=== PATIENT | female | born 1975 | race Caucasian/White ===

== ENCOUNTER 2018-09-15 09:46 | Emergency (ER) | payer BC ==
[~2018-09-15] VITALS: Ht 157.5 cm; Wt 80.7 kg
[2018-09-15 09:52] VITALS: BP 133/70; PULSE 86; RESP 18; Ht 157.5 cm; Wt 80.7 kg
[2018-09-15] MEDS ORDERED: CIPR500T4 PO (11:07)
[2018-09-15] MEDS ORDERED: CIPROFLOXACIN 500 MG TAB PO ONE (11:30)
--- NOTE | 2018-09-15 13:13 | ERD ---
ER Documentation Chief Complaint Chief Complaint painful urination today HPI 43-year-old female presenting with dysuria. Denies hematuria. Denies back pain. Denies fevers. The dysuria and frequency started today. Denies medical problems. NKDA. Surgical . Social history denies ROS All systems reviewed and are negative except as per history of present illness. Medications Home Meds Active Scripts Ciprofloxacin Hcl* (Ciprofloxacin Hcl*) 500 Mg Tablet, 500 MG PO BID for 7 Days, TAB Prov:TILA LEON PA-C 09/15/18 Allergies Allergies: Coded Allergies: No Known Allergy (Unverified , 09/15/18) PMhx/Soc Medical and Surgical Hx: pt denies Medical Hx, pt denies Surgical Hx Hx Alcohol Use: No Hx Substance Use: No Hx Tobacco Use: No Smoking Status: Never smoker FmHx Family History: No diabetes, No coronary disease, No other Physical Exam Vitals Vital Signs Date Temp Pulse Resp B/P (MAP) Pulse Ox O2 O2 Flow FiO2 Time Delivery Rate 09/15/18 98.1 86 18 133/70 100 09:52 (91) Physical Exam GENERAL: The patient is well-appearing, well-nourished, in no acute distress CHEST: Clear to auscultation bilaterally. There are no rales, wheezes or rhonchi. HEART: Regular rate and rhythm. No murmurs, clicks, rubs or gallops. ABDOMEN:Soft, nontender and nondistended. Good bowel sounds. No rebound or guarding. No gross peritonitis. No gross organomegaly or masses. BACK: No midline or flank tenderness. Results 24 hrs Laboratory Tests Test 09/15/18 10:28 09/15/18 10:30 Bedside Urine pH (LAB) 6.0 Bedside Urine Protein (LAB) Negative Bedside Urine Glucose (UA) Negative Bedside Urine Ketones (LAB) Negative Bedside Urine Blood 2+ Bedside Urine Nitrite (LAB) Negative Bedside Urine Leukocyte Esterase (L 2+ POC Beta HCG, Qualitative NEGATIVE Current Medications Medications Dose Sig/Arash Start Time Status Last (Trade) Ordered Route PRN Stop Time Admin Dose Reason Admin 500 mg ONCE ONCE 09/15/18 DC 09/15/18 Ciprofloxacin PO 11:30 09/15/18 11:20 (Cipro) 11:31 Procedures/MDM ER course: Cipro given ED. DM: 43-year-old female presenting with urinary tract infection. I have low suspicion for pyelonephritis. Patient's urine is positive and patient has findings consistent with urinary tract infection. Patient is discharged stricter precautions. All questions answered at discharge Departure Diagnosis: Primary Impression: UTI (urinary tract infection) Condition: Stable Patient Instructions: Understanding Urinary Tract Infections (UTIs) Referrals: COMM[facility]ITY CLIN[facility] YOU HAVE RECEIVED A MEDICAL SCREENING EXAM AND THE RESULTS INDICATE THAT YOU DO NOT HAVE A CONDITION THAT REQUIRES URGENT TREATMENT IN THE EMERGENCY DEPARTMENT. FURTHER EVALUATION AND TREATMENT OF YOUR CONDITION CAN WAIT UNTIL YOU ARE SEEN IN YOUR DOCTORS OFFICE WITHIN THE NEXT 1-2 DAYS. IT IS YOUR RESPONSIBILITY TO MAKE AN APPOINTMENT FOR FOLOW-UP CARE. IF YOU HAVE A PRIMARY DOCTOR --you should call your primary doctor and schedule an appointment IF YOU DO NOT HAVE A PRIMARY DOCTOR YOU CAN CALL OUR PHYSICIAN REFERRAL HOTLINE AT IF YOU CAN NOT AFFORD TO SEE A PHYSICIAN YOU CAN CHOSE FROM THE FOLLOWING [facility] [address] [facility] [facility] [address] [facility] [facility] [address] [facility] [facility] [address] [facility]. [facility] [address] [facility]. [facility]. [address] Additional Instructions: FOLLOW UP WITH YOUR PRIMARY CARE PHYSICIAN TOMORROW.Return to this facility if you are not improving as expected. TILA LEON PA-C Sep 15, 2018 13:13
== END 2018-09-15 11:39 | disposition home or self-care (01) ==
LOC: FTE 09:46
DX: N39.0 Urinary tract infection, site not specified (principal)
CPT/HCPCS: 81003; 81025; 99283

== ENCOUNTER 2019-01-08 08:01 | Inpatient (IN) | payer BC ==
[~2019-01-08] VITALS: Ht 157.5 cm; Wt 77.7 kg
[2019-01-08] VITALS (14 sets, daily range): BP systolic 90–129; BP diastolic 40–63; PULSE 90–102; RESP 15–26; Ht 157.5 cm; Wt 77.7 kg
[~2019-01-08 08:01] MED LIST: CIPR500T4 PO; METF-849 PO; METR-122 PO; OMEG100024 PO
[2019-01-08] MEDS ORDERED: ONDANSETRON 4 MG INJ IV STA (08:17)
[2019-01-08] MEDS ORDERED: SOD CHLORIDE 0.9% 1,000 ML IV STA (08:17)
[2019-01-08] MEDS ORDERED: BELLADONNA/PHENOBARBITAL TAB PO STA (08:17)
[2019-01-08] MEDS ORDERED: LIDOCAINE/MYLANTA 40 ML BTL PO STA (08:17)
[2019-01-08] MEDS ORDERED: KETOROLAC 15 MG INJ IV STA (08:17)
--- NOTE | 2019-01-08 08:41 | ERD ---
ER Documentation Chief Complaint Chief Complaint mid to lower abdominal pain, vomitted 2 x since this 0530 HPI 43-year-old woman complaining of generalized abdominal pain x2 days with some nausea. Patient denies vomiting or diarrhea, no fevers or chills, no chest pain or shortness of breath. Patient denies similar symptoms in the past. ROS All systems reviewed and are negative except as per history of present illness. Medications Home Meds Discontinued Scripts Ciprofloxacin Hcl* (Ciprofloxacin Hcl*) 500 Mg Tablet, 500 MG PO BID for 7 Days, TAB Prov:TILA LEON PA-C 09/15/18 Allergies Allergies: Coded Allergies: No Known Allergy (Unverified , 01/08/19) PMhx/Soc Hx Alcohol Use: No Hx Substance Use: No Hx Tobacco Use: No Smoking Status: Never smoker FmHx Family History: No diabetes Physical Exam Vitals Vital Signs Date Temp Pulse Resp B/P (MAP) Pulse Ox O2 O2 Flow FiO2 Time Delivery Rate 01/08/19 98.2 98 18 126/66 100 Room Air 10:16 (86) 01/08/19 97.6 128 20 140/63 95 08:02 (88) Physical Exam GENERAL: Well-developed, well-nourished, well-hydrated, mild discomfort, afebrile CARDIAC: Regular rate and rhythm, no murmurs rubs or gallops LUNGS: Clear bilaterally no wheezing crackles or stridor ABDOMEN: Right lower quadrant tenderness to touch with voluntary guarding, no rigidity or rebound SKIN: Warm and dry to touch, no abrasions, contusions, or hematomas, no lacerations, no ecchymosis, no target lesions, and without ulcers EXTREMITIES: No clubbing cyanosis or edema, calves are bilaterally symmetrical, no Homans sign, no popliteal cord sign. Distal pulses equal and bilateral PSYCH: Normal affect without agitation or irritability Result Diagram: 01/08/1982501/08/19825 Results 24 hrs Laboratory Tests Test 01/08/19 08:23 01/08/19 08:26 01/08/19 08:29 01/08/19 08:56 Urine NEGATIVE Test White Blood Count 22.7 10^3/ul Red Blood Count 4.43 10^6/ul Hemoglobin 12.5 g/dl Hematocrit 37.7 % Mean Corpuscular 85.1 fl Volume Mean Corpuscular 28.2 pg Hemoglobin Mean Corpuscular 33.2 g/dl Hemoglobin Concent Red Cell 13.7 % Distribution Width Platelet Count 343 10^3/UL Mean Platelet 9.3 fl Volume Immature 0.500 % Granulocytes % Neutrophils % 83.4 % Lymphocytes % 11.1 % Monocytes % 4.7 % Eosinophils % 0.0 % Basophils % 0.3 % Nucleated Red 0.0 /100WBC Blood Cells % Immature 0.110 10^3/ul Granulocytes # Neutrophils # 19.0 10^3/ul Lymphocytes # 2.5 10^3/ul Monocytes # 1.1 10^3/ul Eosinophils # 0.0 10^3/ul Basophils # 0.1 10^3/ul Nucleated Red 0.0 10^3/ul Blood Cells # Urine Color YELLOW Urine Clarity CLOUDY Urine pH 5.0 Urine Specific 1.027 Julian Urine Ketones NEGATIVE mg/dL Urine Nitrite NEGATIVE mg/dL Urine Bilirubin NEGATIVE mg/dL Urine Urobilinogen NEGATIVE mg/dL Urine Leukocyte NEGATIVE Kathleen/ul Esterase Urine Microscopic 12 /HPF RBC Urine Microscopic 3 /HPF WBC Urine Squamous MODERATE /HPF Epithelial Cells Urine Mucus FEW /HPF Urine Hemoglobin 3+ mg/dL Urine Glucose NEGATIVE mg/dL Urine Total 1+ mg/dl Protein Sodium Level 136 mmol/L Potassium Level 3.7 mmol/L Chloride Level 100 mmol/L Carbon Dioxide 24 mmol/L Level Anion Gap 12 Blood Urea 9 mg/dl Nitrogen Creatinine 0.51 mg/dl Est Glomerular > 60 mL/min Filtrat Rate mL/min Glucose Level 178 mg/dl Calcium Level 9.0 mg/dl Total Bilirubin 0.7 mg/dl Direct Bilirubin 0.00 mg/dl Indirect Bilirubin 0.7 mg/dl Aspartate Amino 28 IU/L Transf (AST/SGOT) Alanine 28 IU/L Aminotransferase ( ALT/SGPT) Alkaline 83 IU/L Phosphatase Total Protein 7.7 g/dl Albumin 4.1 g/dl Globulin 3.60 g/dl Albumin/Globulin 1.13 Ratio Lipase 202 U/L Prothrombin Time 12.3 Sec Prothrombin Time 1.0 Ratio INR International 0.90 Normalized Ratio Activated 27.[address] Time POC Beta HCG, NEGATIVE Qualitative Current Medications Medications Dose Sig/Arash Start Time Status Last (Trade) Ordered Route PRN Stop Time Admin Dose Reason Admin Sodium 1,000 ml @ Q1H STAT 01/08/19 DC 01/08/19 Chloride 1,000 mls/hr IV 08:17 08:39 01/08/19 09:16 Ondansetron 4 mg ONCE STAT 01/08/19 DC 01/08/19 HCl (Zofran IV 08:17 08:38 Inj) 01/08/19 08:21 40 ml ONCE STAT 01/08/19 DC 01/08/19 Miscellaneous PO 08:17 08:38 Medication 01/08/19 08:21 (Gi Cocktail (2)) Belladonna/ 2 tab ONCE STAT 01/08/19 DC 01/08/19 Phenobarbital PO 08:17 08:38 () 01/08/19 08:21 Ketorolac 15 mg ONCE STAT 01/08/19 DC 01/08/19 Tromethamine IV 08:17 08:38 (Toradol) 01/08/19 08:21 Piperacillin 100 ml @ ONCE ONCE 01/08/19 DC 01/08/19 Sod/ 200 mls/hr IVPB 10:30 10:39 Tazobactam 01/08/19 10:59 Sod Procedures/MDM IV line was established patient was placed on monitoring tech rhythm strip revealed a sinus rhythm at about 80 bpm with upright P and T waves. Patient was afebrile I administered 1 L normal saline IV, Toradol 15 mg IV, Zofran 4 mg IV, GI cocktail p.o. CT scan of the abdomen pelvis was performed revealing acute appendicitis with a fecalith. Please refer to radiologist dictation for full report. CBC revealed leukocytosis at 23, electrolytes and liver function tests are unremarkable, test and urinalysis were negative. I spoke to surgeon on-call who agreed to consult the patient most likely for appendectomy. Patient admitted to [facility]. I administered Zosyn 3.375 g IV Departure Diagnosis: Primary Impression: Appendicitis Appendicitis type: acute appendicitis Acute appendicitis type: with localized peritonitis Appendicitis gangrene presence: without gangrene Appendicitis perforation presence: without perforation Appendicitis abscess presence: without abscess Qualified Codes: K35.30 - Acute appendicitis with localized peritonitis, without perforation or gangrene Ruled Out: Abdominal pain Condition: KINZA Quinteros MD Jan 08, 2019 08:41
[2019-01-08] MEDS ORDERED: PIPER-TAZO 3.375 GM IV (PMX) 100 ML IVPB ONE (10:30)
[2019-01-08] MEDS ORDERED: morphine 2 MG INJ IV PRN ×2 (13:00→13:30)
--- NOTE | 2019-01-08 13:14 | PREAC ---
Date/Time of Note Date/Time of Note DATE: 01/08/19 TIME: 13:13 Anesthesia Eval and Record Evaluation Time Pre-Procedure Interview DATE: 01/08/19 TIME: 13:13 Age 43 Sex female NPO: 8 hrs Preoperative diagnosis appendicitis Planned procedure laparoscopic appendectomy Past Medical History Past Medical History: Includes Endo: Diabetes GI: Obesity Surgery & Anesthesia Issues No known issue Meds Anticoagulation: No Beta Haroon within 24 hr: No Reason Beta Haroon not given: Pt. not on B-Haroon Discontinued Scripts Ciprofloxacin Hcl* (Ciprofloxacin Hcl*) 500 Mg Tablet, 500 MG PO BID for 7 Days, TAB Prov:TILA LEON PA-C 09/15/18 Current Medications Morphine Sulfate (morphine) 2 mg Q4H PRN IV SEVERE PAIN LEVEL 7-10 Last administered on 01/08/19at 13:07; Admin Dose 2 MG; Start 01/08/19 at 13:30 Sodium Chloride 1,000 ml @ 125 mls/hr Q8H IV ; Start 01/08/19 at 13:03; Status UNV IV Flush (NS 3 ml) 3 ml PER PROTOCOL IV ; Start 01/08/19 at 13:30; Status UNV Ondansetron HCl (Zofran Inj) 4 mg Q6H PRN IV NAUSEA/VOMITING; Start 01/08/19 at 13:30; Status UNV Acetaminophen (Tylenol Tab) 650 mg Q6H PRN PO .PAIN 1-3 OR TEMP; Start 01/08/19 at 13:30; Status UNV Docusate Sodium (Colace) 100 mg Q12H PO ; Start 01/08/19 at 13:30; Status UNV Zolpidem Tartrate (Ambien) 5 mg QHS PRN PO .INSOMNIA; Start 01/08/19 at 13:30; Status UNV Famotidine (Pepcid) 20 mg Q12 PO ; Start 01/08/19 at 21:00; Status UNV Meds reviewed: Yes Allergies Coded Allergies: No Known Allergy (Unverified , 01/08/19) Allergies Reviewed: Yes Labs/Studies Labs Reviewed: Reviewed by anesthesiologist Result Diagram: 01/08/19 0826 01/08/19 0826 Laboratory Tests 01/08/19 08:26 test: Negative Pre-procedure Exam Last vitals Vital Signs Date Temp Pulse Resp B/P (MAP) Pulse Ox O2 O2 Flow FiO2 Time Delivery Rate 01/08/19 98.8 96 18 129/63 99 Room Air 12:05 (85) Airway: Adequate mouth opening Mallampati: Mallampati II Teeth: Normal Lung: Normal Heart: Normal ASA Physical Status ASA physical status: 2 Emergency: None Planned Anesthetic General/MAC: ETT Pre-operative Attestations Prior to commencing anesthesia and surgery, the patient was re-evaluated, there was verification of: *The patient's identity *The results of appropriate recent lab work and preoperative vital signs *The above evaluation not changing prior to induction *Anesthetic plan, risk benefits, alternative and complications discussed with patient/family; questions answered; patient/family understands, accepts and wishes to proceed. RAMIRO COTTO Jan 08, 2019 13:14
--- NOTE | 2019-01-08 13:26 | HP ---
DATE OF ADMISSION: 01/08/2019 PRESENTING COMPLAINT: Abdominal pain, nausea and vomiting. 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 She has had no fever, but has had some subjective chills. Pain is located in t he right lower quadrant, radiates to the umbilicus and posteriorly. Has not had similar pain in the past. Denies dysuria. Denies hematochezia. Also denies hematemesis. Denies passing out episodes. Denies chest pain. Imaging in the Emergency Room with an abdomen and pelvis CT scan showed a dilate d appendix with appendicolith and periappendiceal fat concerning for acute appendicitis as well as hernandez rrounding lymph nodes. The patient was also found to have a 6.5 cm left adnexal cystic structure. S he was also found to have hepatomegaly with steatosis. She is being admitted for management of acute appendicitis. PAST MEDICAL HISTORY: Patient denies. PAST SURGICAL HISTORY: section x2 in the past. ALLERGIES: NO KNOWN DRUG ALLERGIES. SOCIAL HISTORY: Denies tobacco, alcohol or illicit drug use. FAMILY HISTORY: Positive for diabetes. REVIEW OF SYSTEMS: A 12-point review of system as per HPI. HOME MEDICATIONS: None to report. PHYSICAL EXAMINATION: VITAL SIGNS: Temperature 98.8, pulse 96. When she came in pulse was as high as 128, respiratory rat e 18, blood pressure 129/63, saturations 100% on room air. GENERAL: Acutely ill looking, but currently comfortable, in no distress. HEENT: Head is normocephalic. Pupils equal and reactive. NECK: Supple. CHEST: Clear. CARDIOVASCULAR: S1 and S2 only. ABDOMEN: Soft. Right lower quadrant of the abdomen is tender to deep palpation with minimal guardin g but no rebound. Normoactive bowel sounds. Nondistended, non-tympanitic. EXTREMITIES: Lower extremities negative for edema. NEUROLOGIC: No gross focal deficits. LABORATORY VALUES: Urine is cloudy with a total red blood cells, 3+ hemoglobin and protein. Hematolo gy: White count is 22,000 with neutrophil predominance and a coag profile unremarkable and her chemi stry basically a complete metabolic profile was also unremarkable. ASSESSMENT: A 43-year-old female who presented to the Emergency Room with concerns for abdominal fran n, nausea, vomiting for 1 day's duration managed as follows: 1. Acute appendicitis. 2. A 6.5 cm incidental finding of a left adnexal cystic structure. 3. Fatty liver and obesity. DISPOSITION: General surgical consultation has been obtained to assist with appendectomy. We will p rovide supportive care, pain control and empiric antibiotics, awaiting their review. For her adnexal mass, we will go ahead and order a pelvic ultrasound and see what that shows and continue all other screening modalities and further interventions will depend on our findings and her clinical course. Plan of care has been discussed with patient in detail, questions have been answered. Of note is breanne t the patient also has mild sepsis from appendicitis. Dictated By: LUIS A PABON MD, BA/ANNA Conf#: [id number] DID#: [id number]
[2019-01-08] MEDS ORDERED: ACETAMINOPHEN 325 MG TAB PO PRN ×2 (13:30→18:30)
[2019-01-08] MEDS ORDERED: ONDANSETRON 4 MG INJ IV PRN ×2 (13:30→16:00)
[2019-01-08] MEDS: DOCUSATE SODIUM 100 MG CAP PO SCH (13:30)
[2019-01-08] MEDS ORDERED: ZOLPIDEM 5 MG TAB PO PRN (13:30)
[2019-01-08] MEDS ORDERED: NACL 0.9% 3 ML SYG IV SCH (13:30)
--- NOTE | 2019-01-08 13:38 | CONS ---
Assessment/Plan Assessment/Plan Hospital Course (Demo Recall) 1. Acute appendicitis with appendicolith: -Antibiotics -OR today -N.p.o. -IV fluids 2. Leukocytosis: -As above -Trend 3. Abdominal pain: -As above -Pain management 4.Large cystic structure in left adnexa: -We will attempt to visualize during appendectomy otherwise can consider pelvic ultrasound for further characterization 5. Hepatomegaly with hepatic steatosis: -encourage weight loss 6. Diabetes: -Highly encouraged weight loss -Glucose management 7. Obesity BMI: 31 -diet and exercise optimization -encourage weight loss Thank you. Patient seen and examined in collaboration with Dr. Luiz Cortes. Consultation Date/Type/Reason Admit Date/Time Jan 08, 2019 at 10:39 Date of Consultation: Jan 08, 2019 Type of Consult Surgical Reason for Consultation Abdominal pain, appendicitis Requesting Provider: KINZA WASHINGTON MD Date/Time of Note DATE: 01/08/19 TIME: 13:29 Hx of Present Illness Laura Baca is a 43-year-old woman with past medical history of obesity and diabetes who presents to the ER with complaints of abdominal pain abdominal pain began 5:30 in the evening the night prior to presentation. Abdominal pain is described as strong and constant beginning in the mid epigastric region with radiation bilaterally however has currently migrated towards the right lower quadrant. Associated symptoms include nausea with vomiting, nonbloody emesis. She denies fevers, chills, congested cough, chest pain, palpitations, change in bowel or bladder habits, skin or scleral changes.CT of the abdomen was performed showing dilated appendix with proximal appendicolith and trace periappendiceal fat stranding concerning for acute appendicitis laboratory findings significant for elevated WBC of 22.7. General surgery was asked to evaluate. 12 point review of systems was reviewed is negative except for as stated in HPI. Past Medical History Diabetes Obesity Home Meds Discontinued Scripts Ciprofloxacin Hcl* (Ciprofloxacin Hcl*) 500 Mg Tablet, 500 MG PO BID for 7 Days, TAB Prov:TILA LEON PA-C 09/15/18 Medications Current Medications Morphine Sulfate (morphine) 2 mg Q4H PRN IV SEVERE PAIN LEVEL 7-10 Last admi nistered on 01/08/19at 13:07; Admin Dose 2 MG; Start 01/08/19 at 13:30 Sodium Chloride 1,000 ml @ 125 mls/hr Q8H IV ; Start 01/08/19 at 13:03 IV Flush (NS 3 ml) 3 ml PER PROTOCOL IV ; Start 01/08/19 at 13:30 Ondansetron HCl (Zofran Inj) 4 mg Q6H PRN IV NAUSEA/VOMITING; Start 01/08/19 at 13:30 Acetaminophen (Tylenol Tab) 650 mg Q6H PRN PO .PAIN 1-3 OR TEMP; Start 01/08/19 at 13:30 Docusate Sodium (Colace) 100 mg Q12H PO ; Start 01/08/19 at 13:30 Zolpidem Tartrate (Ambien) 5 mg QHS PRN PO .INSOMNIA; Start 01/08/19 at 13:30 Famotidine (Pepcid) 20 mg Q12 PO ; Start 01/08/19 at 21:00 Allergies: Coded Allergies: No Known Allergy (Unverified , 01/08/19) Past Surgical History C-sections x2 IUD Family History Significant Family History: no pertinent family hx Social History Alcohol Use: none Smoking Status: Never smoker Drug Use: none Exam/Review of Systems Exam Vitals Vital Signs Date Temp Pulse Resp B/P (MAP) Pulse Ox O2 O2 Flow FiO2 Time Delivery Rate 01/08/19 98.8 96 18 129/63 99 Room Air 12:05 (85) Constitutional: alert, oriented, well developed Psych: nl mood/affect; No anxiety Head: normocephalic, atraumatic Eyes: nl conjunctiva, nl lids, nl sclera ENMT: nl external ears & nose, nl lips & teeth, mucosa pink and moist Neck: supple, non-tender; No jvd Respiratory: normal air movement; No congested cough Cardiovascular: regular rate and rhythm, nl pulses Gastrointestinal: soft, distended (Moderate), tender (Right lower quadrant, McBurney's point) Genitourinary - Female: nl external genitalia Musculoskeletal: nl extremities to inspection, nl gait and stance Extremities: normal pulses Neurological: nl mental status, nl speech, nl strength Skin: No rash or lesions Results Result Diagram: 01/08/19 0826 01/08/19 0826 Results 24hrs Laboratory Tests Test 01/08/19 08:26 01/08/19 08:29 01/08/19 08:56 White Blood Count 22.7 H Red Blood Count 4.43 Hemoglobin 12.5 Hematocrit 37.7 Mean Corpuscular Volume 85.1 Mean Corpuscular Hemoglobin 28.2 L Mean Corpuscular Hemoglobin Concent 33.2 Red Cell Distribution Width 13.7 Platelet Count 343 Mean Platelet Volume 9.3 Immature Granulocytes % 0.500 H Neutrophils % 83.4 H Lymphocytes % 11.1 L Monocytes % 4.7 Eosinophils % 0.0 Basophils % 0.3 Nucleated Red Blood Cells % 0.0 Immature Granulocytes # 0.110 H Neutrophils # 19.0 H Lymphocytes # 2.5 Monocytes # 1.1 H Eosinophils # 0.0 Basophils # 0.1 Nucleated Red Blood Cells # 0.0 Urine Color YELLOW Urine Clarity CLOUDY A Urine pH 5.0 Urine Specific [place] 1.027 Urine Ketones NEGATIVE Urine Nitrite NEGATIVE Urine Bilirubin NEGATIVE Urine Urobilinogen NEGATIVE Urine Leukocyte Esterase NEGATIVE Urine Microscopic RBC 12 H Urine Microscopic WBC 3 Urine Squamous Epithelial Cells MODERATE Urine Mucus FEW A Urine Hemoglobin 3+ H Urine Glucose NEGATIVE Urine Total Protein 1+ H Sodium Level 136 Potassium Level 3.7 Chloride Level 100 Carbon Dioxide Level 24 Anion Gap 12 Blood Urea Nitrogen 9 Creatinine 0.51 Est Glomerular Filtrat Rate mL/min > 60 Glucose Level 178 Calcium Level 9.0 Total Bilirubin 0.7 Direct Bilirubin 0.00 Indirect Bilirubin 0.7 Aspartate Amino Transf (AST/SGOT) 28 Alanine Aminotransferase (ALT/SGPT) 28 Alkaline Phosphatase 83 Total Protein 7.7 Albumin 4.1 Globulin 3.60 H Albumin/Globulin Ratio 1.13 Lipase 202 Prothrombin Time 12.3 Prothrombin Time Ratio 1.0 INR International Normalized Ratio 0.90 Activated Partial Thromboplast Time 27.5 POC Beta HCG, Qualitative NEGATIVE Medications Medication Current Medications Morphine Sulfate (morphine) 2 mg Q4H PRN IV SEVERE PAIN LEVEL 7-10 Last adm inistered on 01/08/19at 13:07; Admin Dose 2 MG; Start 01/08/19 at 13:30 Sodium Chloride 1,000 ml @ 125 mls/hr Q8H IV ; Start 01/08/19 at 13:03 IV Flush (NS 3 ml) 3 ml PER PROTOCOL IV ; Start 01/08/19 at 13:30 Ondansetron HCl (Zofran Inj) 4 mg Q6H PRN IV NAUSEA/VOMITING; Start 01/08/19 at 13:30 Acetaminophen (Tylenol Tab) 650 mg Q6H PRN PO .PAIN 1-3 OR TEMP; Start 01/08/19 at 13:30 Docusate Sodium (Colace) 100 mg Q12H PO ; Start 01/08/19 at 13:30 Zolpidem Tartrate (Ambien) 5 mg QHS PRN PO .INSOMNIA; Start 01/08/19 at 13:30 Famotidine (Pepcid) 20 mg Q12 PO ; Start 01/08/19 at 21:00 HAKAN VEGA NP Jan 08, 2019 13:38
[2019-01-08] MEDS: SOD CHLORIDE 0.9% 1,000 ML IV SCH (13:48)
[2019-01-08] MEDS ORDERED: ONDANSETRON 4 MG INJ ONE (15:43)
[2019-01-08] MEDS ORDERED: ROCURONIUM 50 MG INJ ONE (15:43)
[2019-01-08] MEDS ORDERED: PROPOFOL 20 ML ONE ×2 (15:43→17:37)
[2019-01-08] MEDS ORDERED: ROPIVACAINE 0.5 % 30 ML VIAL ONE (15:43)
[2019-01-08] MEDS ORDERED: KETOROLAC 30 MG INJ ONE (15:44)
[2019-01-08] MEDS ORDERED: METOCLOPRAMIDE 10 MG INJ ONE (15:44)
[2019-01-08] MEDS ORDERED: BUPIVACAINE 0.25%/EPI (SDV) 30 ML INJ ONE (15:48)
[2019-01-08] MEDS ORDERED: LIDOCAINE 1% (MPF) 30 ML INJ ONE (15:48)
[2019-01-08] MEDS ORDERED: FENTAnyl 50 MCG/ML VIAL IV PRN ×3 (16:00)
[2019-01-08] MEDS ORDERED: MEPERIDINE 25 MG INJ IV PRN (16:00)
[2019-01-08] MEDS ORDERED: DIPHENHYDRAMINE 50 MG INJ IV PRN (16:00)
[2019-01-08] MEDS ORDERED: HYDROmorphONE 1 MG/5 ML IV SYRINGE IV PRN ×3 (16:00)
[2019-01-08] MEDS ORDERED: KETOROLAC 30 MG INJ IV PRN (16:00)
[2019-01-08] MEDS ORDERED: MIDAZOLAM 1 MG/ML 2 ML INJ ONE (16:20)
[2019-01-08] MEDS ORDERED: LIDOCAINE 2% JELLY 5 ML ONE (16:29)
[2019-01-08] MEDS ORDERED: NEOSTIGMINE 3 MG/3 ML SYRINGE ONE (17:38)
[2019-01-08] MEDS ORDERED: GLYCOPYRROLATE 0.4 MG INJ ONE (17:38)
--- NOTE | 2019-01-08 18:02 | OPR ---
Date/Time of Note Date/Time of Note DATE: 01/08/19 TIME: 17:56 Operative Report Free Text/Dictation Preoperative Diagnosis 1. Acute appendicitis, possible perforation 2. BMI 31 3. Left ovarian 6 cm cyst Postoperative Diagnosis 1. Acute appendicitis with perforation, peritonitis with pus 2. BMI 31 3. Left ovarian 6 to 8 cm large cyst with eminent risk for torsion. Operation Performed 1. Laparoscopic appendectomy and washout 2. [place], [id number] 3. Laparoscopic guided bilateral transversus abdominis plane block 4. Assist and laparoscopic left ovarian cystectomy (primary surgeon Dr. Browne) Surgeon: NATHANAEL MCCORMICK MD Electrocardiograph Technician: Kim Browne MD Anesthesia: general (Plus local plus regional) Anesthesiologist: Becky Norris MD Estimated Blood Loss: 50 ml's Specimens: Appendix Cyst fluid Cyst wall Tubes/Drains 19 F Gonzalez Complications: None Pt Condition Post Procedure: stable Disposition: PACU Indications: Per consult note. Risks include but are not limited to bleeding, infection, abscess, seroma, leak, damage to intestines or any intra-abdominal/intrapelvic structures, hernia formation, chronic pain, need for re-operations or further surgeries, [place], stroke, PE, DVT, pneumonia, organ failures, or even . Procedure Note: Patient was brought into the operating room, placed supine on the operating table, SCDs were placed, left arm was tucked, all pressure points were well- padded, preoperative antibiotics administered, and after induction of anesthesia, patient was prepped and draped in usual sterile fashion, and timeout was performed. Incision was made supraumbilically and the Veress needle was safely place into the abdomen. After negative sip test, abdomen was insufflated to 15 mmHg with CO2. At this point Veress was removed and the 5 mm blunt trocar was placed into the abdomen. Laparoscopy was performed and no injuries were identified using a 5 mm 30 scope. Under direct visualization another 5 mm port was placed and left lower quadrant and 12 mm port and suprapubic region avoiding the bladder. All incision sites were injected with quarter percent Marcaine with 1% lidocaine with epi. Bilateral transversus abdominis plane block was performed under laparoscopic visualization to aid with pain control intra-and postoperatively. Patient was placed in Trendelenburg and right side up. The appendix was found to be inflamed with evidence of perforation with pus in the pelvis and right abdomen. The base was transected using Endo ALBER white load automatic 35 mm stapler just on the cecum. The laura were fired fully. The mesoappendix was transected with another white load stapler. Hemostasis was fully obtained. The appendix was placed in an Endo Catch bag and removed through the suprapubic port site. That fascia was eventually closed with Endo Close and 0 Vicryl in a [id number] manner avoiding the bladder. Pelvis was investigated. Left ovarian cyst was at least 6 to 8 cm with eminent risk for torsion. Intraoperative consultation was obtained from [employer] (Dr. Browne). Upon examination the cyst ruptured. Cyst aspirate was sent to pathology. Cyst wall was sent to pathology. Left ovarian cystectomy was performed and hemostasis was obtained with electrocautery and fibrillar. Interceed was wrapped around the ovary. There was complete hemostasis. Due to the perforation 19 Iranian Gonzalez drain was placed into the abdomen and pelvis and right gutter through the left lower quadrant incision and secured with 2-0 nylon suture. Ports and CO2 were removed under direct visualization, wounds were fully irrigated, and skin was closed in subcuticular fashion using 4-0 Monocryl. Dermabond was applied. All counts were correct and the end of the operation 2. Patient was extubated and transferred to recovery room in stable condition. NATHANAEL MCCORMICK MD Jan 08, 2019 18:02
[2019-01-08] MEDS ORDERED: FENTAnyl 50 MCG/ML VIAL ONE (18:22)
[2019-01-08] MEDS: HYDROmorphONE 0.5 MG/0.5 ML SYG IV PRN (21:30)
[2019-01-08] MEDS: FAMOTIDINE 20 MG TAB PO SCH (21:30)
[2019-01-09] MEDS: SOD CHLORIDE 0.9% 1,000 ML IV SCH ×4 (00:34→21:09)
[2019-01-09] MEDS: PIPER-TAZO 3.375 GM IV (PMX) 100 ML IVPB SCH ×5 (00:34→23:15)
[2019-01-09] MEDS: DOCUSATE SODIUM 100 MG CAP PO SCH ×2 (00:34→13:52)
[2019-01-09 02:00] VITALS: BP 104/52; PULSE 80; RESP 19
--- NOTE | 2019-01-09 02:52 | OPR ---
Date/Time of Note Date/Time of Note DATE: 01/09/19 TIME: 02:41 Operative Report Free Text/Dictation January 08, 2019 Procedure Date: Jan 08, 2019 Preoperative Diagnosis 1. Ruptured appendix 2. Intraoperative finding of left ovarian cyst, Intra-Op consultation by general surgeon ( Dr Cortes) to [facility] Postoperative Diagnosis Ruptured appendix, appendicitis Enlarged left simple ovarian cyst. Adhesion and scar of the uterus the anterior abdominal wall related to prior C- section Moderate inflammation of the tubes related to recent ruptured appendix/inflammation Ovary in the right side appears normal. No evidence of peritubal adhesion or scar Please see the rest of the operative report from general surgeon Dr. Cortes for the rest of Intra-Op findings Operation/Procedure Performed 1. Laparoscopic appendectomy performed by general surgeon Dr. Cortes 2. Consulted [facility] due to incidental finding of the left enlarged simple benign- appearing ovarian cyst, that had instantly burst during procedure. Ovarian cystectomy performed laparoscopically Surgeon see signature line Bobcat Driver/Labor Dr Luiz Cortes MD Anesthesia Type: general Anesthesiologist: PEREZ ARMSTRONG MD Estimated Blood Loss: 50 - 100 ml's Transfusion none Specimen Appendix, refer to general surgery note for this specimen as well as Intra-Op finding The left ovarian cyst wall Grafts/Implants none Tubes/Drains Drain placed into the pelvis Complications none Pt Condition Post Procedure: stable Disposition: PACU Indications Incidental finding of enlarged left ovarian cyst noted during laparoscopic appendectomy that had burst significantly during laparoscopic surgery. Consulted [facility] intraoperatively Procedure Description Left enlarged ovarian cyst incidentally found during laparoscopic appendectomy Intraoperative consultation was done by general surgery Dr. Cortes. Attended to the surgical field. Evaluation of the [facility] organs noted normal uterus size with no evidence of fibroid but there was evidence of adhesions and scar of uterus to anterior abdominal wall related to prior . There was evidence of ruptured left ovarian cyst which appeared to be simple follicular cyst. Ovaries and both sides were benign looking. Ovary in the right side looks normal with small 1 cm follicular cyst that appeared completely benign. There was evidence of inflammation of the tubes related to recent ruptured appendix. Scrubbed to the case. Cyst wall was resected from the base of the ovary and cyst wall was in pieces sent to pathology. Then the remainder of the ovarian cyst wall was trimmed. Using bipolar and monopolar cautery hemostasis of the bed of the ovarian cyst obtained. Then fibrillar was placed over the resected site was packed into the resected ovarian cyst area and then Interceed was placed around the ovary after assurance about excellent hemostasis. Negative pressure check confirmed adequate hemostasis. Drain was placed by surgeon into the pelvis. No complication noted during the procedure or concern. Please refer to the rest of the dictation to Dr. Cortes's note. SHAHAB BOWMAN MD Jan 09, 2019 02:51
[2019-01-09] MEDS: HYDROmorphONE 0.5 MG/0.5 ML SYG IV PRN ×3 (03:04→11:18)
[2019-01-09 08:19] VITALS: BP 102/54; PULSE 86; RESP 16
[2019-01-09] MEDS: FAMOTIDINE 20 MG TAB PO SCH ×2 (08:25→21:10)
--- NOTE | 2019-01-09 08:30 | PAC ---
Date/Time of Note Date/Time of Note DATE: 01/09/19 TIME: 08:30 Post-Anesthesia Notes Post-Anesthesia Note Last documented vital signs Vital Signs Date Temp Pulse Resp B/P (MAP) Pulse Ox O2 O2 Flow FiO2 Time Delivery Rate 01/09/19 98.1 86 16 102/54 94 08:19 (70) 01/08/19 Nasal 2.0 19:08 Cannula Activity: WNL Respiratory function: WNL Cardiovascular function: WNL Mental status: Baseline Pain reasonably controlled: Yes Hydration appropriate: Yes Nausea/Vomiting absent: No PEREZ ARMSTRONG MD Jan 09, 2019 08:30
[2019-01-09] MEDS: HYDROCODONE/APAP (5/325) TAB PO PRN ×2 (11:18→19:53)
[2019-01-09] MEDS ORDERED: GLUCAGON 1 MG INJ IM PRN (13:30)
[2019-01-09] MEDS ORDERED: GLUCOSE GEL 15 GRAM TUBE PO PRN ×2 (13:30)
[2019-01-09] MEDS ORDERED: DEXTROSE 50% 50 ML SYRINGE IV PRN ×2 (13:30)
[2019-01-09] MEDS ORDERED: GLUCOSE GEL 15 GRAM TUBE BUCCAL PRN (13:30)
[2019-01-09 14:00] VITALS: BP 97/51; PULSE 75; RESP 20
[2019-01-09 15:15] VITALS: BP 117/57; PULSE 93; RESP 22
--- NOTE | 2019-01-09 16:53 | PN ---
Date/Time of Note Date/Time of Note DATE: 01/09/19 TIME: 16:40 Assessment/Plan Lines/Catheters IV C[facility]ter Type (from [facility]): Peripheral IV Salgado in Place (from Nrs): No Assessment/Plan Chief Complaint/Hosp Course 1. Acute appendicitis with perforation, peritonitis and pus; left ovarian 60 cm large cyst with eminent risk for torsion; status post laparoscopic appendectomy and washout, laparoscopic left ovarian cystectomy (primary surgeon Dr. Browne) 01/08/19 -continue Antibiotics -IS -ambulate -ice pack to abdominal wall -advance diet as tolerated 2. Leukocytosis: improved -As above -Trend 3. Abdominal pain: -As above -Pain management 4.Large cystic structure in left adnexa: sp laparoscopic left ovarian cystectomy (primary surgeon Dr. Browne) 01/08/19 -as above 5. Hepatomegaly with hepatic steatosis: -encourage weight loss 6. Diabetes: -Highly encouraged weight loss -Glucose management 7. Obesity BMI: 31 -diet and exercise optimization -encourage weight loss Thank you. Patient seen and examined in collaboration with Dr. Luiz Cortes. Subjective 24 Hr Interval Summary Complaints of abdominal pain. No fevers, chills, sob, congested cough, cp, palpitations, [place], dizziness, n/v/d/dysuria. Exam/Review of Systems Vital Signs Vitals Vital Signs Date Temp Pulse Resp B/P (MAP) Pulse Ox O2 O2 Flow FiO2 Time Delivery Rate 01/09/19 98.1 93 22 117/57 85 15:15 (77) 01/08/19 Nasal 2.0 19:08 Cannula Intake and Output 01/08/19 01/08/19 01/09/19 1515:00 23:00 07:00 IntakeIntake Total 50 ml 1440 ml 1715 ml OutputOutput Total 500 ml 10 ml 475 ml BalanceBalance -450 ml 1430 ml 1240 ml Exam Free Text/Dictation Constitutional: alert, oriented, well developed Psych: nl mood/affect; No anxiety Head: normocephalic, atraumatic Eyes: nl conjunctiva, nl lids, nl sclera ENMT: nl external ears & nose, nl lips & teeth, mucosa pink and moist Neck: supple, non-tender; No jvd Respiratory: normal air movement; No congested cough Cardiovascular: regular rate and rhythm, nl pulses Gastrointestinal: soft, distended (Moderate), tender (branden-incisional, incision sites dry without drainage/discoloration/bruising; RENETTA with serosanguineous drainage) Genitourinary - Female: nl external genitalia Musculoskeletal: nl extremities to inspection, nl gait and stance Extremities: normal pulses Neurological: nl mental status, nl speech, nl strength Skin: No rash or lesions Results Result Diagram: 01/09/19 0425 01/09/19 0425 HAKAN VEGA NP Jan 09, 2019 16:53
[2019-01-09] MEDS: INSULIN ASPART [NOVOLOG] 3 ML PEN SC SCH ×2 (17:22→21:00)
--- NOTE | 2019-01-09 18:02 | PN ---
Date/Time of Note Date/Time of Note DATE: 01/09/19 TIME: 17:52 Assessment/Plan VTE Prophylaxis Risk score (from Nsg)>0 risk: 2 SCD applied (from Nsg): Yes Pharmacological prophylaxis: NA/contraindicated Pharm contraindication: low risk/ambulating, other (scd) Lines/Catheters IV Catheter Type (from Nrs): Peripheral IV Urinary Cath still in place: No Assessment/Plan Hospital Course A 43-year-old female who presented to the Emergency Room with concerns for abdo brett pain, nausea, vomiting for 1 day's duration managed as follows: 1. Acute perforated appendicitis. -patient underwent lap appendectomy yesterday with findings of Acute appendicitis with perforation, peritonitis with pus and also had laparoscopic cystectomy of ovariancyst noted ion #2 in the same procedure -continue abx -drain still with good output and patient still wuth a good deal of pain -continue clears for now and supportive care 2. A 6.5 cm incidental finding of a left adnexal cystic structure.- complex ovarian cyst on US 3. Fatty liver and obesity. 4. DM 2: recent diagnosis - was not on meds outpatient -A1c 7.2 -advised on weight loss -diabetic education for need for glucometer and new diagnosis -SSI only for now, recommend 1800 calorie diet when commenced on a diet. 5. Low HDL : -high fiber diet, fish oil? Result Diagram: 01/09/19 0425 01/09/19 0425 Results 24hrs Laboratory Tests Test 01/09/19 04:25 01/09/19 17:21 White Blood Count 16.8 #H Red Blood Count 3.45 #L Hemoglobin 9.9 #L Hematocrit 30.4 L Mean Corpuscular Volume 88.1 Mean Corpuscular Hemoglobin 28.7 L Mean Corpuscular Hemoglobin Concent 32.6 Red Cell Distribution Width 14.6 H Platelet Count 266 # Mean Platelet Volume 9.6 Immature Granulocytes % 0.400 Neutrophils % 78.0 H Lymphocytes % 14.6 L Monocytes % 6.7 Eosinophils % 0.1 Basophils % 0.2 Nucleated Red Blood Cells % 0.0 Immature Granulocytes # 0.070 H Neutrophils # 13.1 H Lymphocytes # 2.5 Monocytes # 1.1 H Eosinophils # 0.0 Basophils # 0.0 Nucleated Red Blood Cells # 0.0 Sodium Level 139 Potassium Level 3.7 Chloride Level 108 Carbon Dioxide Level 26 Anion Gap 5 Blood Urea Nitrogen 8 Creatinine 0.65 Est Glomerular Filtrat Rate mL/min > 60 Glucose Level 143 Hemoglobin A1c 7.4 H Calcium Level 7.4 L Magnesium Level 1.9 Total Bilirubin 0.7 Direct Bilirubin 0.00 Indirect Bilirubin 0.7 Aspartate Amino Transf (AST/SGOT) 18 Alanine Aminotransferase (ALT/SGPT) 21 Alkaline Phosphatase 58 Total Protein 5.8 #L Albumin 2.9 #L Globulin 2.90 Albumin/Globulin Ratio 1.00 Triglycerides Level 110 Cholesterol Level 125 LDL Cholesterol, Calculated 71 HDL Cholesterol 32 L Cholesterol/HDL Ratio 3.9 Thyroid Stimulating Hormone (TSH) 0.926 Bedside Glucose 126 Subjective 24 Hr Interval Summary Free Text/Dictation having some post op pain, but prn pain meds control it adequately Exam/Review of Systems Exam Vitals Vital Signs Date Temp Pulse Resp B/P (MAP) Pulse Ox O2 O2 Flow FiO2 Time Delivery Rate 01/09/19 98.1 93 22 117/57 85 15:15 (77) 01/08/19 Nasal 2.0 19:08 Cannula Intake and Output 01/08/19 01/08/19 01/09/19 1515:00 23:00 07:00 IntakeIntake Total 50 ml 1440 ml 1715 ml OutputOutput Total 500 ml 10 ml 475 ml BalanceBalance -450 ml 1430 ml 1240 ml Exam Constitutional: alert, oriented, mildly lethargic Head: atraumatic, normocephalic Neck: non-tender, supple Respiratory: clear to auscultation Cardiovascular: regular rate and rhythm Gastrointestinal: mildly distended with drain LLQ with good amount of serosan guineous output, still sore / tender diffusely Lower abd, hypoactive BS Extremities: no edema, good radial pulses Results Results 24hrs Laboratory Tests Test 01/09/19 04:25 01/09/19 17:21 White Blood Count 16.8 #H Red Blood Count 3.45 #L Hemoglobin 9.9 #L Hematocrit 30.4 L Mean Corpuscular Volume 88.1 Mean Corpuscular Hemoglobin 28.7 L Mean Corpuscular Hemoglobin Concent 32.6 Red Cell Distribution Width 14.6 H Platelet Count 266 # Mean Platelet Volume 9.6 Immature Granulocytes % 0.400 Neutrophils % 78.0 H Lymphocytes % 14.6 L Monocytes % 6.7 Eosinophils % 0.1 Basophils % 0.2 Nucleated Red Blood Cells % 0.0 Immature Granulocytes # 0.070 H Neutrophils # 13.1 H Lymphocytes # 2.5 Monocytes # 1.1 H Eosinophils # 0.0 Basophils # 0.0 Nucleated Red Blood Cells # 0.0 Sodium Level 139 Potassium Level 3.7 Chloride Level 108 Carbon Dioxide Level 26 Anion Gap 5 Blood Urea Nitrogen 8 Creatinine 0.65 Est Glomerular Filtrat Rate mL/min > 60 Glucose Level 143 Hemoglobin A1c 7.4 H Calcium Level 7.4 L Magnesium Level 1.9 Total Bilirubin 0.7 Direct Bilirubin 0.00 Indirect Bilirubin 0.7 Aspartate Amino Transf (AST/SGOT) 18 Alanine Aminotransferase (ALT/SGPT) 21 Alkaline Phosphatase 58 Total Protein 5.8 #L Albumin 2.9 #L Globulin 2.90 Albumin/Globulin Ratio 1.00 Triglycerides Level 110 Cholesterol Level 125 LDL Cholesterol, Calculated 71 HDL Cholesterol 32 L Cholesterol/HDL Ratio 3.9 Thyroid Stimulating Hormone (TSH) 0.926 Bedside Glucose 126 Imaging Imaging Free Text/Dictation Preoperative Diagnosis 1. Acute appendicitis, possible perforation 2. BMI 31 3. Left ovarian 6 cm cyst Postoperative Diagnosis 1. Acute appendicitis with perforation, peritonitis with pus 2. BMI 31 3. Left ovarian 6 to 8 cm large cyst with eminent risk for torsion. Operation Performed 1. Laparoscopic appendectomy and washout 2. Local anesthetic [place], [id number] 3. Laparoscopic guided bilateral transversus abdominis plane block 4. Assist and laparoscopic left ovarian cystectomy (primary surgeon Dr. Browne) PROCEDURE: US Pelvis Complete, Transabdominal US Pelvis, Transvaginal CLINICAL INDICATION: Left adnexal cystic mass on CT scan. TECHNIQUE: Real-time transabdominal and transvaginal pelvic ultrasound (complete) with image documentation. Transvaginal imaging was used for better evaluation of the endometrium and adnexa. COMPARISON: CT 01/08/2019 FINDINGS: UTERUS/CERVIX: Uterus measures 8.7 x 4.6 x 5.9 cm. Endometrial echo complex measures 10.2 mm. No myometrial mass. RIGHT OVARY: Right ovary measures 4.4 x 2.1 x 3.5 cm. Normal blood flow. LEFT OVARY: 5 x 4.9 x 5.3 cm septated cystic left ovarian mass. Left ovary measures 7.9 x 5.9 x 5.5 cm. Normal blood flow. FREE FLUID: Trace free fluid in the pelvis. BLADDER: Unremarkable as visualized. Wall is normal thickness for degree of distention. TUBES, LINES AND DEVICES: Intrauterine prophylactic device in place. IMPRESSION: 1. 5 x 4.9 x 5.3 cm septated cystic left ovarian mass. Question hemorrhagic or complex ovarian cyst. Short-interval pelvic ultrasound follow-up (6-12 weeks) is recommended to ensure resolution. 2. Trace free fluid in the pelvis. 3. Intrauterine prophylactic device in place. Medications Medication Current Medications Sodium Chloride 1,000 ml @ 125 mls/hr Q8H IV Last administered on 01/09/19at 11:40; Admin Dose 125 MLS/HR; Start 01/08/19 at 13:03 IV Flush (NS 3 ml) 3 ml PER PROTOCOL IV ; Start 01/08/19 at 13:30 Ondansetron HCl (Zofran Inj) 4 mg Q6H PRN IV NAUSEA/VOMITING; Start 01/08/19 at 13:30 Docusate Sodium (Colace) 100 mg Q12H PO Last administered on 01/09/19at 13:52; Admin Dose 100 MG; Start 01/08/19 at 13:30 Zolpidem Tartrate (Ambien) 5 mg QHS PRN PO .INSOMNIA; Start 01/08/19 at 13:30 Famotidine (Pepcid) 20 mg Q12 PO Last administered on 01/09/19at 08:25; Admin Dose 20 MG; Start 01/08/19 at 21:00 Acetaminophen/ Hydrocodone Bitart (Stephens (5/325)) 1 tab Q6H PRN PO PAIN LEVEL 6-10 Last administered on 01/09/19at 11:18; Admin Dose 1 TAB; Start 01/08/19 at 18:30 Acetaminophen (Tylenol Tab) 650 mg Q6H PRN PO MILD PAIN(1-5)OR ELEVATED TEMP; Start 01/08/19 at 18:30 Piperacillin Sod/ Tazobactam Sod 100 ml @ 200 mls/hr Q6 IVPB Last administered on 01/09/19at 11:59; Admin Dose 200 MLS/HR; Start 01/09/19 at 00:00 Hydromorphone HCl (Dilaudid) 0.5 mg Q2H PRN IV BTP Last administered on 01/09/19at 11:18; Admin Dose 0.5 MG; Start 01/08/19 at 18:30 Diagnostic Test (Pha) (Accu-Chek) 1 ea 02 XX ; Start 01/10/19 at 02:00 Insulin Aspart (Novolog Insulin Pen) NOVOLOG *MILD* ALGORITHM WITH MEALS BEDTIME SC ; Start 01/09/19 at 18:05 Miscellaneous Information 1 ea NOTE XX ; Start 01/09/19 at 13:30 Glucose (Glutose) 15 gm Q15M PRN PO DECREASED GLUCOSE; Start 01/09/19 at 13:30 Glucose (Glutose) 22.5 gm Q15M PRN PO DECREASED GLUCOSE; Start 01/09/19 at 13:30 Dextrose (D50w Syringe) 25 ml Q15M PRN IV DECREASED GLUCOSE; Start 01/09/19 at 13:30 Dextrose (D50w Syringe) 50 ml Q15M PRN IV DECREASED GLUCOSE; Start 01/09/19 at 13:30 Glucagon (Glucagen) 1 mg Q15M PRN IM DECREASED GLUCOSE; Start 01/09/19 at 13:30 Glucose (Glutose) 15 gm Q15M PRN BUCCAL DECREASED GLUCOSE; Start 01/09/19 at 13:30 LUIS A PABON Jan 09, 2019 18:02
[2019-01-09 20:11] VITALS: BP 96/56; PULSE 80; RESP 18
[2019-01-09] MEDS: FISH OIL 1,000 MG CAP PO SCH (21:10)
[2019-01-10] MEDS: ACCU-CHEK XX SCH ×2 (02:00→20:43)
[2019-01-10 02:46] VITALS: BP 105/55; PULSE 80; RESP 20
[2019-01-10] MEDS: PIPER-TAZO 3.375 GM IV (PMX) 100 ML IVPB SCH ×4 (05:41→23:33)
[2019-01-10] MEDS: SOD CHLORIDE 0.9% 1,000 ML IV SCH ×3 (05:42→15:44)
[2019-01-10] MEDS: HYDROCODONE/APAP (5/325) TAB PO PRN ×3 (06:05→23:29)
[2019-01-10 08:00] VITALS: BP 119/62; PULSE 68; RESP 17
[2019-01-10] MEDS: INSULIN ASPART [NOVOLOG] 3 ML PEN SC SCH ×4 (08:00→20:43)
[2019-01-10] MEDS: FISH OIL 1,000 MG CAP PO SCH ×2 (08:59→20:42)
[2019-01-10] MEDS: FAMOTIDINE 20 MG TAB PO SCH ×2 (08:59→20:43)
[2019-01-10 14:00] VITALS: BP 134/65; PULSE 70; RESP 18
--- NOTE | 2019-01-10 15:59 | PN ---
Date/Time of Note Date/Time of Note DATE: 01/10/19 TIME: 15:57 Assessment/Plan VTE Prophylaxis Risk score (from Nsg)>0 risk: 4 SCD applied (from Nsg): Yes Pharmacological prophylaxis: NA/contraindicated Pharm contraindication: low risk/ambulating Lines/Catheters IV Catheter Type (from Nrsg): Peripheral IV Urinary Cath still in place: No Assessment/Plan Hospital Course SUBJECTIVE: Continues to have some incisional pain. OBJECTIVE: Physical Exam General: Obese, 43 year-old female lying in bed in no apparent distress. HEENT: Normocephalic, atraumatic. Eyes: Anicteric sclerae, conjunctivae clear. ENT: Nasal septum midline, oral mucosa moist. Neck supple, no JVD noticed. Respiratory: Bilaterally clear breath sounds. No use of accessory muscles of respiration. No adventitious breath sounds. Cardiovascular: S1, S2 heard. Regular rate and rhythm. Abdomen: Soft and nondistended. Surgical drain from the laparoscopic incision site that is draining serosanguineous secretions. Jeanette-incisional tenderness. Bowel sounds positive in all 4 quadrants. Genitourinary: Deferred. Extremities: No cyanosis, no clubbing, no edema. Peripheral pulses palpable. Neurologic: Cranial nerves II through XII grossly intact. The patient is awake, alert, and oriented. Skin: Normal skin turgor. No skin rashes. Labs & Vitals per chart ASSESSMENT & PLAN 43-year-old female with no significant past medical history other than obesity who presented with abdominal pain with CT evidence of underlying acute appendicitis was admitted to inpatient setting for further treatment and evaluation. 1. Acute appendicitis with perforation. Status post laparoscopic appendectomy and washout on 01/08/2019. Currently on clear liquids. Continue pain control. Continue antibiotics. Advancement of diet as per general surgery. 2. Left ovarian cyst with imminent risk for torsion. Status post left ovarian cystectomy on 01/08/2019. 3. Diabetes mellitus type 2 (Newly diagnosed). Hemoglobin A1c 7.4. Continue the patient on sliding scale insulin. 4. Obesity. BMI more than 31 kg/m. Advised lifestyle modification. Dietary consult. 5. Dyslipidemia. Low HDL. On fish oil. 6. Fluids, electrolytes, and nutrition. Clear liquid diet. Advancement of diet as per general surgery. 7. DVT prophylaxis. Bilateral SCDs. Frequent ambulation. 8. Plan. Continue pain control. Continue incentive spirometry and frequent ambulation. Advancement of diet as per general surgery. The patient was seen in collaboration with Dr. Dickey. Result Diagram: 01/10/19 0649 01/10/19 0649 Results 24hrs Laboratory Tests Test 01/09/19 17:21 01/09/19 21:18 01/10/19 06:49 01/10/19 08:16 Bedside Glucose 126 130 131 White Blood Count 13.0 #H Red Blood Count 3.52 L Hemoglobin 10.0 L Hematocrit 31.2 L Mean Corpuscular 88.6 Volume Mean Corpuscular 28.4 L Hemoglobin Mean Corpuscular 32.1 Hemoglobin Concent Red Cell 14.6 H Distribution Width Platelet Count 244 Mean Platelet Volume 9.6 Immature 0.500 H Granulocytes % Neutrophils % 72.0 Lymphocytes % 21.0 Monocytes % 5.5 Eosinophils % 0.5 Basophils % 0.5 Nucleated Red Blood 0.0 Cells % Immature 0.070 H Granulocytes # Neutrophils # 9.4 H Lymphocytes # 2.7 Monocytes # 0.7 Eosinophils # 0.1 Basophils # 0.1 Nucleated Red Blood 0.0 Cells # Sodium Level 139 Potassium Level 3.4 L Chloride Level 108 Carbon Dioxide Level 26 Anion Gap 5 Blood Urea Nitrogen 7 Creatinine 0.65 Est Glomerular > 60 Filtrat Rate mL/min Glucose Level 118 Calcium Level 7.5 L Phosphorus Level 3.0 Magnesium Level 2.0 Test 01/10/19 12:21 Bedside Glucose 93 Exam/Review of Systems Exam Vitals Vital Signs Date Temp Pulse Resp B/P (MAP) Pulse Ox O2 O2 Flow FiO2 Time Delivery Rate 01/10/19 98.2 70 18 134/65 98 14:00 (88) 01/08/19 Nasal 2.0 19:08 Cannula Intake and Output 01/09/19 01/09/19 01/10/19 1515:00 23:00 07:00 IntakeIntake Total 535 ml 1220 ml 1320 ml OutputOutput Total 45 ml 85 ml 55 ml BalanceBalance 490 ml 1135 ml 1265 ml Results Results 24hrs Laboratory Tests Test 01/09/19 17:21 01/09/19 21:18 01/10/19 06:49 01/10/19 08:16 Bedside Glucose 126 130 131 White Blood Count 13.0 #H Red Blood Count 3.52 L Hemoglobin 10.0 L Hematocrit 31.2 L Mean Corpuscular 88.6 Volume Mean Corpuscular 28.4 L Hemoglobin Mean Corpuscular 32.1 Hemoglobin Concent Red Cell 14.6 H Distribution Width Platelet Count 244 Mean Platelet Volume 9.6 Immature 0.500 H Granulocytes % Neutrophils % 72.0 Lymphocytes % 21.0 Monocytes % 5.5 Eosinophils % 0.5 Basophils % 0.5 Nucleated Red Blood 0.0 Cells % Immature 0.070 H Granulocytes # Neutrophils # 9.4 H Lymphocytes # 2.7 Monocytes # 0.7 Eosinophils # 0.1 Basophils # 0.1 Nucleated Red Blood 0.0 Cells # Sodium Level 139 Potassium Level 3.4 L Chloride Level 108 Carbon Dioxide Level 26 Anion Gap 5 Blood Urea Nitrogen 7 Creatinine 0.65 Est Glomerular > 60 Filtrat Rate mL/min Glucose Level 118 Calcium Level 7.5 L Phosphorus Level 3.0 Magnesium Level 2.0 Test 01/10/19 12:21 Bedside Glucose 93 Medications Medication Current Medications Sodium Chloride 1,000 ml @ 125 mls/hr Q8H IV Last administered on 01/10/19at 15:44; Admin Dose 125 MLS/HR; Start 01/08/19 at 13:03 IV Flush (NS 3 ml) 3 ml PER PROTOCOL IV ; Start 01/08/19 at 13:30 Ondansetron HCl (Zofran Inj) 4 mg Q6H PRN IV NAUSEA/VOMITING; Start 01/08/19 at 13:30 Zolpidem Tartrate (Ambien) 5 mg QHS PRN PO .INSOMNIA; Start 01/08/19 at 13:30 Famotidine (Pepcid) 20 mg Q12 PO Last administered on 01/10/19at 08:59; Admin Dose 20 MG; Start 01/08/19 at 21:00 Acetaminophen/ Hydrocodone Bitart ([place] (5/325)) 1 tab Q6H PRN PO PAIN LEVEL 6-10 Last administered on 01/10/19at 14:36; Admin Dose 1 TAB; Start 01/08/19 at 18:30 Acetaminophen (Tylenol Tab) 650 mg Q6H PRN PO MILD PAIN(1-5)OR ELEVATED TEMP; Start 01/08/19 at 18:30 Piperacillin Sod/ Tazobactam Sod 100 ml @ 200 mls/hr Q6 IVPB Last administered on 01/10/19at 12:16; Admin Dose 200 MLS/HR; Start 01/09/19 at 00:00 Hydromorphone HCl (Dilaudid) 0.5 mg Q2H PRN IV BTP Last administered on 01/09/19at 11:18; Admin Dose 0.5 MG; Start 01/08/19 at 18:30 Diagnostic Test (Pha) (Accu-Chek) 1 ea 02 XX ; Start 01/10/19 at 02:00 Insulin Aspart (Novolog Insulin Pen) NOVOLOG *MILD* ALGORITHM WITH MEALS BEDTIME SC ; Start 01/09/19 at 18:05 Miscellaneous Information 1 ea NOTE XX ; Start 01/09/19 at 13:30 Glucose (Glutose) 15 gm Q15M PRN PO DECREASED GLUCOSE; Start 01/09/19 at 13:30 Glucose (Glutose) 22.5 gm Q15M PRN PO DECREASED GLUCOSE; Start 01/09/19 at 13:30 Dextrose (D50w Syringe) 25 ml Q15M PRN IV DECREASED GLUCOSE; Start 01/09/19 at 13:30 Dextrose (D50w Syringe) 50 ml Q15M PRN IV DECREASED GLUCOSE; Start 01/09/19 at 13:30 Glucagon (Glucagen) 1 mg Q15M PRN IM DECREASED GLUCOSE; Start 01/09/19 at 13:30 Glucose (Glutose) 15 gm Q15M PRN BUCCAL DECREASED GLUCOSE; Start 01/09/19 at 13:30 Fish Oil (Fish Oil) 1,000 mg BID PO Last administered on 01/10/19at 08:59; Admin Dose 1,000 MG; Start 01/09/19 at 21:00 Docusate Sodium (Colace) 100 mg Q12H PO ; Start 01/10/19 at 21:00 BERT CLARK NP Jan 10, 2019 15:59
[2019-01-10] MEDS ORDERED: POTASSIUM CHLORIDE (SR) 10 MEQ TAB PO ONE (16:00)
[2019-01-10 20:00] VITALS: BP 144/68; PULSE 67; RESP 17
[2019-01-10] MEDS: DOCUSATE SODIUM 100 MG CAP PO SCH (20:43)
--- NOTE | 2019-01-10 23:17 | PN ---
Date/Time of Note Date/Time of Note DATE: 01/10/19 TIME: 23:17 Assessment/Plan Lines/Catheters IV Catheter Type (from [facility]): Peripheral IV Salgado in Place (from [facility]): No Assessment/Plan Chief Complaint/Hosp Course 1. Acute appendicitis with perforation, peritonitis and pus; left ovarian 60 cm large cyst with eminent risk for torsion; status post laparoscopic appendectomy and washout, laparoscopic left ovarian cystectomy 01/08/19 -iv antibiotics -IS -ambulate -ice pack to abdominal wall -advance diet as tolerated 2. Leukocytosis: improving -As above -Trend 3. Abdominal pain: -As above -Pain management 4. Large cystic structure in left adnexa: sp laparoscopic left ovarian cystectomy 01/08/19 -as above 5. Hepatomegaly with hepatic steatosis: -encourage weight loss 6. Diabetes: -Highly encouraged weight loss -Glucose management 7. Obesity BMI: 31 -diet and exercise optimization -encourage weight loss Thank you Subjective 24 Hr Interval Summary Abdominal pain improving. No fevers, chills, sob, congested cough, cp, palpitations, [place], dizziness, nausea, vomiting, dysuria. Bowel function. No [place]wood/visual or neuro changes. Exam/Review of Systems Vital Signs Vitals Vital Signs Date Temp Pulse Resp B/P (MAP) Pulse Ox O2 O2 Flow FiO2 Time Delivery Rate 01/10/19 98.3 67 17 144/68 98 Room Air 20:00 (93) 01/08/19 2.0 19:08 Intake and Output 01/10/19 01/10/19 01/11/19 1515:00 23:00 07:00 IntakeIntake Total 340 ml 2040 ml OutputOutput Total 70 ml BalanceBalance 340 ml 1970 ml Exam Free Text/Dictation Constitutional: alert, oriented, well developed Psych: nl mood/affect; No anxiety Head: normocephalic, atraumatic Eyes: nl conjunctiva, nl lids, nl sclera ENMT: nl external ears & nose, nl lips & teeth, mucosa pink and moist Neck: supple, non-tender; No jvd Respiratory: normal air movement; No congested cough Cardiovascular: regular rate and rhythm, nl pulses Gastrointestinal: soft, distended (Moderate), tender (branden-incisional, incision sites dry without drainage/discoloration/bruising; RENETTA with serosanguineous drainage) Genitourinary - Female: nl external genitalia Musculoskeletal: nl extremities to inspection, nl gait and stance Extremities: normal pulses Neurological: nl mental status, nl speech, nl strength Skin: No rash or lesions Results Result Diagram: 01/10/19 0649 01/10/19 0649 NATHANAEL MCCORMICK MD Jan 10, 2019 23:17
[2019-01-11 02:00] VITALS: BP 120/59; PULSE 62; RESP 17
[2019-01-11] MEDS: PIPER-TAZO 3.375 GM IV (PMX) 100 ML IVPB SCH ×4 (05:27→23:23)
[2019-01-11] MEDS: INSULIN ASPART [NOVOLOG] 3 ML PEN SC SCH ×4 (08:00→20:41)
[2019-01-11 08:01] VITALS: BP 142/65; PULSE 63; RESP 16
[2019-01-11] MEDS: FAMOTIDINE 20 MG TAB PO SCH ×2 (08:12→20:41)
[2019-01-11] MEDS: FISH OIL 1,000 MG CAP PO SCH ×2 (08:12→20:41)
[2019-01-11] MEDS: DOCUSATE SODIUM 100 MG CAP PO SCH ×2 (08:12→20:41)
[2019-01-11] MEDS: HYDROCODONE/APAP (5/325) TAB PO PRN (08:16)
--- NOTE | 2019-01-11 11:43 | PN ---
Date/Time of Note Date/Time of Note DATE: 01/11/19 TIME: 11:42 Assessment/Plan Lines/Catheters IV Catheter Type (from [facility]): Saline Lock Salgado in Place (from [facility]): No Assessment/Plan Chief Complaint/Hosp Course 1. Acute appendicitis with perforation, peritonitis and pus; left ovarian 60 cm large cyst with eminent risk for torsion; status post laparoscopic appendectomy and washout, laparoscopic left ovarian cystectomy 01/08/19 -iv antibiotics -IS -ambulate -ice pack to abdominal wall -advance diet as tolerated 2. Leukocytosis: improving -As above -Trend 3. Obesity BMI: 31 -diet and exercise optimization -encourage weight loss 4. Large cystic structure in left adnexa: sp laparoscopic left ovarian cystectomy 01/08/19 -as above 5. Hepatomegaly with hepatic steatosis: -encourage weight loss 6. Diabetes: -Highly encouraged weight loss -Glucose management Thank you Subjective 24 Hr Interval Summary WBC improving. Abdominal pain improving. No fevers, chills, sob, congested cough, cp, palpitations, [place], dizziness, nausea, vomiting, dysuria. Bowel function. No norwood/visual or neuro changes. Exam/Review of Systems Vital Signs Vitals Vital Signs Date Temp Pulse Resp B/P (MAP) Pulse Ox O2 O2 Flow FiO2 Time Delivery Rate 01/11/19 98.2 63 16 142/65 98 08:01 (90) 01/11/19 Room Air 02:00 01/08/19 2.0 19:08 Intake and Output 01/10/19 01/10/19 01/11/19 1515:00 23:00 07:00 IntakeIntake Total 340 ml 2040 ml 200 ml OutputOutput Total 70 ml 110 ml BalanceBalance 340 ml 1970 ml 90 ml Exam Free Text/Dictation Constitutional: alert, oriented, well developed Psych: nl mood/affect; No anxiety Head: normocephalic, atraumatic Eyes: nl conjunctiva, nl lids, nl sclera ENMT: nl external ears & nose, nl lips & teeth, mucosa pink and moist Neck: supple, non-tender; No jvd Respiratory: normal air movement; No congested cough Cardiovascular: regular rate and rhythm, nl pulses Gastrointestinal: soft, distended (Moderate), tender (branden-incisional, incision sites dry without drainage/discoloration/bruising; RENETTA with serosanguineous drainage) Genitourinary - Female: nl external genitalia Musculoskeletal: nl extremities to inspection, nl gait and stance Extremities: normal pulses Neurological: nl mental status, nl speech, nl strength Skin: No rash or lesions Results Result Diagram: 01/11/19 0454 01/11/19 0454 NATHANAEL MCCORMICK MD Jan 11, 2019 11:43
--- NOTE | 2019-01-11 12:01 | PN ---
Date/Time of Note Date/Time of Note DATE: 01/11/19 TIME: 11:59 Assessment/Plan VTE Prophylaxis Risk score (from Nsg)>0 risk: 2 SCD applied (from Nsg): Yes Pharmacological prophylaxis: NA/contraindicated Pharm contraindication: low risk/ambulating Lines/Catheters IV Catheter Type (from Nrsg): Saline Lock Urinary Cath still in place: No Assessment/Plan Hospital Course SUBJECTIVE: Abdominal pain well controlled. OBJECTIVE: Physical Exam General: Obese, 43 year-old female lying in bed in no apparent distress. HEENT: Normocephalic, atraumatic. Eyes: Anicteric sclerae, conjunctivae clear. ENT: Nasal septum midline, oral mucosa moist. Neck supple, no JVD noticed. Respiratory: Bilaterally clear breath sounds. No use of accessory muscles of respiration. No adventitious breath sounds. Cardiovascular: S1, S2 heard. Regular rate and rhythm. Abdomen: Soft and nondistended. Surgical drain from the laparoscopic incision site that is draining serosanguineous secretions. Jeanette-incisional tenderness. Bowel sounds positive in all 4 quadrants. Genitourinary: Deferred. Extremities: No cyanosis, no clubbing, no edema. Peripheral pulses palpable. Neurologic: Cranial nerves II through XII grossly intact. The patient is awake, alert, and oriented. Skin: Normal skin turgor. No skin rashes. Labs & Vitals per chart ASSESSMENT & PLAN 43-year-old female with no significant past medical history other than obesity who presented with abdominal pain with CT evidence of underlying acute appendicitis was admitted to inpatient setting for further treatment and evaluation. 1. Acute appendicitis with perforation. Status post laparoscopic appendectomy and washout on 01/08/2019. Continue pain control. Continue antibiotics. Encourage frequent ambulation and use of incentive spirometry. 2. Left ovarian cyst with imminent risk for torsion. Status post left ovarian cystectomy on 01/08/2019. 3. Diabetes mellitus type 2 (Newly diagnosed). Hemoglobin A1c 7.4. Continue the patient on sliding scale insulin. 4. Obesity. BMI more than 31 kg/m. Advised lifestyle modification. Dietary consult. 5. Dyslipidemia. Low HDL. On fish oil. 6. Fluids, electrolytes, and nutrition. Carbohydrate controlled diet. 7. DVT prophylaxis. Bilateral SCDs. Frequent ambulation. 8. Plan. Continue pain control. Continue incentive spirometry and frequent ambulation. DC planning is to discharge the patient home once cleared by general surgery. The patient was seen in collaboration with Dr. Dickey. Result Diagram: 01/11/19 0454 01/11/19 0454 Results 24hrs Laboratory Tests Test 01/10/19 12:21 01/10/19 17:17 01/10/19 20:42 01/11/19 04:54 Bedside Glucose 93 100 84 White Blood Count 11.7 H Red Blood Count 3.61 L Hemoglobin 10.2 L Hematocrit 31.4 L Mean Corpuscular 87.0 Volume Mean Corpuscular 28.3 L Hemoglobin Mean Corpuscular 32.5 Hemoglobin Concent Red Cell 13.9 Distribution Width Platelet Count 274 Mean Platelet Volume 9.9 Immature 0.300 Granulocytes % Neutrophils % 61.7 Lymphocytes % 29.2 Monocytes % 6.3 Eosinophils % 1.9 Basophils % 0.6 Nucleated Red Blood 0.0 Cells % Immature 0.040 H Granulocytes # Neutrophils # 7.2 Lymphocytes # 3.4 H Monocytes # 0.7 Eosinophils # 0.2 Basophils # 0.1 Nucleated Red Blood 0.0 Cells # Sodium Level 138 Potassium Level 3.6 Chloride Level 105 Carbon Dioxide Level 28 Anion Gap 5 Blood Urea Nitrogen 7 Creatinine 0.64 Est Glomerular > 60 Filtrat Rate mL/min Glucose Level 102 Calcium Level 8.1 L Phosphorus Level 3.5 Magnesium Level 2.1 Test 01/11/19 08:11 Bedside Glucose 105 Exam/Review of Systems Exam Vitals Vital Signs Date Temp Pulse Resp B/P (MAP) Pulse Ox O2 O2 Flow FiO2 Time Delivery Rate 01/11/19 98.2 63 16 142/65 98 08:01 (90) 01/11/19 Room Air 02:00 01/08/19 2.0 19:08 Intake and Output 01/10/19 01/10/19 01/11/19 1515:00 23:00 07:00 IntakeIntake Total 340 ml 2040 ml 200 ml OutputOutput Total 70 ml 110 ml BalanceBalance 340 ml 1970 ml 90 ml Results Results 24hrs Laboratory Tests Test 01/10/19 12:21 01/10/19 17:17 01/10/19 20:42 01/11/19 04:54 Bedside Glucose 93 100 84 White Blood Count 11.7 H Red Blood Count 3.61 L Hemoglobin 10.2 L Hematocrit 31.4 L Mean Corpuscular 87.0 Volume Mean Corpuscular 28.3 L Hemoglobin Mean Corpuscular 32.5 Hemoglobin Concent Red Cell 13.9 Distribution Width Platelet Count 274 Mean Platelet Volume 9.9 Immature 0.300 Granulocytes % Neutrophils % 61.7 Lymphocytes % 29.2 Monocytes % 6.3 Eosinophils % 1.9 Basophils % 0.6 Nucleated Red Blood 0.0 Cells % Immature 0.040 H Granulocytes # Neutrophils # 7.2 Lymphocytes # 3.4 H Monocytes # 0.7 Eosinophils # 0.2 Basophils # 0.1 Nucleated Red Blood 0.0 Cells # Sodium Level 138 Potassium Level 3.6 Chloride Level 105 Carbon Dioxide Level 28 Anion Gap 5 Blood Urea Nitrogen 7 Creatinine 0.64 Est Glomerular > 60 Filtrat Rate mL/min Glucose Level 102 Calcium Level 8.1 L Phosphorus Level 3.5 Magnesium Level 2.1 Test 01/11/19 08:11 Bedside Glucose 105 Medications Medication Current Medications IV Flush (NS 3 ml) 3 ml PER PROTOCOL IV ; Start 01/08/19 at 13:30 Ondansetron HCl (Zofran Inj) 4 mg Q6H PRN IV NAUSEA/VOMITING; Start 01/08/19 at 13:30 Zolpidem Tartrate (Ambien) 5 mg QHS PRN PO .INSOMNIA; Start 01/08/19 at 13:30 Famotidine (Pepcid) 20 mg Q12 PO Last administered on 01/11/19at 08:12; Admin Dose 20 MG; Start 01/08/19 at 21:00 Acetaminophen/ Hydrocodone Bitart ([place] (5/325)) 1 tab Q6H PRN PO PAIN LEVEL 6-10 Last administered on 01/11/19at 08:16; Admin Dose 1 TAB; Start 01/08/19 at 18:30 Acetaminophen (Tylenol Tab) 650 mg Q6H PRN PO MILD PAIN(1-5)OR ELEVATED TEMP; Start 01/08/19 at 18:30 Piperacillin Sod/ Tazobactam Sod 100 ml @ 200 mls/hr Q6 IVPB Last administered on 01/11/19at 11:28; Admin Dose 200 MLS/HR; Start 01/09/19 at 00:00 Hydromorphone HCl (Dilaudid) 0.5 mg Q2H PRN IV BTP Last administered on 01/09/19at 11:18; Admin Dose 0.5 MG; Start 01/08/19 at 18:30 Diagnostic Test (Pha) (Accu-Chek) 1 ea 02 XX ; Start 01/10/19 at 02:00 Insulin Aspart (Novolog Insulin Pen) NOVOLOG *MILD* ALGORITHM WITH MEALS BEDTIME SC ; Start 01/09/19 at 18:05 Miscellaneous Information 1 ea NOTE XX ; Start 01/09/19 at 13:30 Glucose (Glutose) 15 gm Q15M PRN PO DECREASED GLUCOSE; Start 01/09/19 at 13:30 Glucose (Glutose) 22.5 gm Q15M PRN PO DECREASED GLUCOSE; Start 01/09/19 at 13:30 Dextrose (D50w Syringe) 25 ml Q15M PRN IV DECREASED GLUCOSE; Start 01/09/19 at 13:30 Dextrose (D50w Syringe) 50 ml Q15M PRN IV DECREASED GLUCOSE; Start 01/09/19 at 13:30 Glucagon (Glucagen) 1 mg Q15M PRN IM DECREASED GLUCOSE; Start 01/09/19 at 13:30 Glucose (Glutose) 15 gm Q15M PRN BUCCAL DECREASED GLUCOSE; Start 01/09/19 at 13:30 Fish Oil (Fish Oil) 1,000 mg BID PO Last administered on 01/11/19at 08:12; Admin Dose 1,000 MG; Start 01/09/19 at 21:00 Docusate Sodium (Colace) 100 mg Q12H PO Last administered on 01/11/19at 08:12; Admin Dose 100 MG; Start 01/10/19 at 21:00 BERT CLARK NP Jan 11, 2019 12:01
[2019-01-11 14:05] VITALS: BP 134/62; PULSE 63; RESP 18
[2019-01-11 20:00] VITALS: BP 128/70; PULSE 61; RESP 18
[2019-01-11] MEDS: ACCU-CHEK XX SCH (23:23)
[2019-01-12 02:00] VITALS: BP 136/75; PULSE 58; RESP 18
[2019-01-12] MEDS: HYDROCODONE/APAP (5/325) TAB PO PRN ×2 (04:36→18:01)
[2019-01-12] MEDS: PIPER-TAZO 3.375 GM IV (PMX) 100 ML IVPB SCH ×3 (05:58→18:01)
[2019-01-12] MEDS: INSULIN ASPART [NOVOLOG] 3 ML PEN SC SCH ×4 (08:00→20:46)
[2019-01-12 08:06] VITALS: BP 127/72; PULSE 57; RESP 16
[2019-01-12] MEDS: FAMOTIDINE 20 MG TAB PO SCH ×2 (09:20→20:43)
[2019-01-12] MEDS: FISH OIL 1,000 MG CAP PO SCH ×2 (09:20→20:43)
[2019-01-12] MEDS: DOCUSATE SODIUM 100 MG CAP PO SCH ×2 (09:20→20:43)
--- NOTE | 2019-01-12 11:45 | PDOCDIS ---
Discharge Instructions CONDITION [id number] Patient Condition: [id number] Stable HOME CARE INSTRUCTIONS: [id number] Diet Instructions: [id number] Reduced Calorie [id number] Special Diet: [id number] IVITY: [id number] Activity Restrictions: [id number] Slowly Increase Activity Rest between Activity FOLLOW UP/APPOINTMENTS Follow-up Plan Please call the surgeon's office for follow-up and drain removal Name, Degree : Luiz Cortes MD Specialty : General Surgery Office Address : [address] [facility] [address] [place] [id number] Office Office Also followup with your primary doctor within the next 1-2 weeks, to notify them of what happened in the hospital and ensure continued resolution of symptoms. If you don't have one please let someone know, we can give you resources that may help you pick one. You may call Dr Miguelito Kurtz's office. he's accepting new patients Name, Degree: Miguelito Kurtz MD Specialty: Internal Medicine Comments: Office Address: [address] [place] [address] [address] [place] [address] Office Office You may also call your insurance company to assign one to you. Review your medication list with your nurse before leaving and if you need new prescriptions please let your nurse know. I may have made changes to your home medications or given you new prescriptions, please let your primary doctor know as well. Stay compliant with your medications and report any side effects to your PCP or pharmacist. Return to the ER if you have any concerns and cannot reach your doctors or call your insurance company, they usually have a nurse that can help you. LUIS A PABON Jan 12, 2019 11:45
--- NOTE | 2019-01-12 11:50 | DS ---
Date/Time of Note Date/Time of Note DATE: 01/12/19 TIME: 11:48 Discharge Summary Admission/Discharge Info Admit Date/Time Jan 08, 2019 at 10:39 Discharge Date/Time Discharge Diagnosis A 43-year-old female who presented to the Emergency Room with concerns for a bdominal pain, nausea, vomiting for 1 day's duration managed as follows: 1. Acute perforated appendicitis. -patient underwent lap appendectomy yesterday with findings of Acute appendicitis with perforation, peritonitis with pus and also had laparoscopic cystectomy of ovariancyst noted ion #2 in the same procedure -continue abx -drain still with good output and patient still wuth a good deal of pain -continue clears for now and supportive care 2. A 6.5 cm incidental finding of a left adnexal cystic structure.- complex ovarian cyst on US 3. Fatty liver and obesity. 4. DM 2: recent diagnosis - was not on meds outpatient -A1c 7.2 -advised on weight loss -diabetic education for need for glucometer and new diagnosis -SSI only for now, recommend 1800 calorie diet when commenced on a diet. 5. Low HDL : -high fiber diet, fish oil? Patient Condition: Stable Consults General surgery: Nathanael Cortes MD Gynecology: Pavan Alvarez . Procedures Preoperative Diagnosis 1. Acute appendicitis, possible perforation 2. BMI 31 3. Left ovarian 6 cm cyst Postoperative Diagnosis 1. Acute appendicitis with perforation, peritonitis with pus 2. BMI 31 3. Left ovarian 6 to 8 cm large cyst with eminent risk for torsion. Operation Performed 1. Laparoscopic appendectomy and washout 2. Local anesthetic injection, [id number] 3. Laparoscopic guided bilateral transversus abdominis plane block 4. Assist and laparoscopic left ovarian cystectomy (primary surgeon Dr. Browne) Surgeon: NATHANAEL CORTES MD Restaurant Hospitality Manager: Kim Browne MD . Hospital Course This discharge summary is done in anticipation of surgical plans for discharge. This is a 43-year-old female who had presented to emergency room with abdominal pain nausea vomiting was found to have sepsis with appendicitis. Incidentally on CAT scan she was also noted to have an ovarian cyst. She underwent laparoscopic appendectomy as well as cystectomy in the same procedure but had a fairly prolonged postoperative course because her appendix was perforated and she had peritonitis with pulse. At this time she is much improved even though not fully back to baseline, she also continues to have significant output from Gonzalez abdominal drain. The patient is also a diabetic but was not on medications prior to hospitalization, hemoglobin A1c came back at 7.4. On an inpatient setting, she is only required sliding scale insulin. At this time she is tolerating a carb controlled diet, she is ambulance, and her pain is well controlled with minimal pain medications. It is my opinion that the patient is stable enough for discharge for continued outpatient follow-up with general surgery for monitoring and eventual removal of her drain. The patient is in agreement with this. At this time I restarted the surgeons for clearance. If cleared the patient will be discharged to complete a 10 days to 2-week course of antibiotics as outpatient and to follow-up with general surgery for her drain. . Home Meds Discontinued Scripts Ciprofloxacin Hcl* (Ciprofloxacin Hcl*) 500 Mg Tablet, 500 MG PO BID for 7 Days, TAB Prov:TILA LEON PA-C 09/15/18 Follow-up Plan Please call the surgeon's office for follow-up and drain removal Name, Degree : Nathnaael Cortes MD Specialty : General Surgery Office Address : [id number] [place] [id number] Office Office Also followup with your primary doctor within the next 1-2 weeks, to notify them of what happened in the hospital and ensure continued resolution of symptoms. If you don't have one please let someone know, we can give you resources that may help you pick one. You may call Dr Miguelito Kurtz's office. he's accepting new patients Name, Degree: Miguelito Kurtz MD Specialty: Internal Medicine Comments: Office Address: [address] [facility] [address] [place] [address] Office Office You may also call your insurance company to assign one to you. Review your medication list with your nurse before leaving and if you need new prescriptions please let your nurse know. I may have made changes to your home medications or given you new prescriptions, please let your primary doctor know as well. Stay compliant with your medications and report any side effects to your PCP or pharmacist. Return to the ER if you have any concerns and cannot reach your doctors or call your insurance company, they usually have a nurse that can help you. Primary Care Provider Lucian Medrano MD Time spent on discharge: > 30 minutes Pending Labs Laboratory Tests Test 01/11/19 12:07 01/11/19 17:29 01/11/19 20:40 01/12/19 05:50 Bedside 105 104 131 Glucose mg/dL (70-220) mg/dL (70-220) mg/dL (70-220) White Blood 9.4 Count 10^3/ul (4.8-1 0.8) Red Blood 3.75 Count 10^6/ul (4.20- 5.40) Hemoglobin 10.8 g/dl (12.0-16. 0) Hematocrit 32.0 % (37.0-47.0) Mean 85.3 Corpuscular fl (82.0-101.0 Volume ) Mean 28.8 Corpuscular pg (29.0-33.0) Hemoglobin Mean 33.8 Corpuscular g/dl (32.0-37. Hemoglobin Conc 0) ent Red Cell 13.5 Distribution % (11.5-14.5) Width Platelet Count 316 10^3/UL (140-4 15) Mean Platelet 9.3 Volume fl (7.4-10.4) Immature 0.600 Granulocytes % % (0.001-0.429 ) Neutrophils % 62.7 % (39.0-77.0) Lymphocytes % 27.2 % (15.0-51.0) Monocytes % 6.0 % (0.0-11.0) Eosinophils % 2.8 % (0.0-7.0) Basophils % 0.7 % (0.0-2.0) Nucleated Red 0.0 Blood Cells % /100WBC (0.0-0 .0) Immature 0.060 Granulocytes # 10^3/ul (0.0-0 .031) Neutrophils # 5.9 10^3/ul (1.6-7 .5) Lymphocytes # 2.6 10^3/ul (0.8-2 .9) Monocytes # 0.6 10^3/ul (0.3-0 .9) Eosinophils # 0.3 10^3/ul (0.0-0 .5) Basophils # 0.1 10^3/ul (0.0-0 .1) Nucleated Red 0.0 Blood Cells # 10^3/ul (0.0-0 .0) Sodium Level 138 mmol/L (135-14 4) Potassium 3.3 Level mmol/L (3.5-5. 1) Chloride Level 103 mmol/L (97-110 ) Carbon Dioxide 29 Level mmol/L (21-31) Anion Gap 6 (5-13) Blood Urea 8 mg/dl (7-20) Nitrogen Creatinine 0.67 mg/dl (0.44-1. 00) Est Glomerular > 60 Filtrat mL/min (>60) Rate mL/min Glucose Level 124 mg/dl (70-220) Calcium Level 8.4 mg/dl (8.4-10. 2) Phosphorus 4.7 Level mg/dl (2.5-4.9 ) Magnesium 1.9 Level mg/dl (1.7-2.5 ) Test 01/12/19 08:08 Bedside 114 Glucose mg/dL (70-220) LUIS A PABON Jan 12, 2019 11:50
[2019-01-12] MEDS: POTASSIUM CHLORIDE (SR) 20 MEQ TAB PO SCH ×2 (12:26→14:36)
[2019-01-12 14:44] VITALS: BP 122/67; PULSE 65; RESP 16
[2019-01-12 20:00] VITALS: BP 122/68; PULSE 68; RESP 17
--- NOTE | 2019-01-12 23:08 | PN ---
Date/Time of Note Date/Time of Note DATE: 01/12/19 TIME: 23:07 Assessment/Plan Lines/Catheters IV Catheter Type (from [facility]): Saline Lock Salgado in Place (from [facility]): No Assessment/Plan Chief Complaint/Hosp Course 1. Acute appendicitis with perforation, peritonitis and pus; left ovarian 60 cm large cyst with eminent risk for torsion; status post laparoscopic appendectomy and washout, laparoscopic left ovarian cystectomy 01/08/19 -iv antibiotics -IS -ambulate -ice pack to abdominal wall -advance diet as tolerated -dc planning after pod 5 2. Leukocytosis: resolved -As above 3. Obesity BMI: 31 -diet and exercise optimization -encourage weight loss 4. Large cystic structure in left adnexa: sp laparoscopic left ovarian cystectomy 01/08/19. Negative path 5. Hepatomegaly with hepatic steatosis: -encourage weight loss 6. Diabetes: -Highly encouraged weight loss -Glucose management Thank you Subjective 24 Hr Interval Summary WBC normalized. Abdominal pain improving 10. No fevers, chills, sob, congested cough, cp, palpitations, norwood, dizziness, nausea, vomiting, dysuria. Bowel function. No norwood/visual or neuro changes. Exam/Review of Systems Vital Signs Vitals Vital Signs Date Temp Pulse Resp B/P (MAP) Pulse Ox O2 O2 Flow FiO2 Time Delivery Rate 01/12/19 98.8 68 17 122/68 95 20:00 (86) 01/11/19 Nasal 14:05 Cannula 01/08/19 2.0 19:08 Intake and Output 01/11/19 01/11/19 01/12/19 1515:00 23:00 07:00 IntakeIntake Total 800 ml 1300 ml 440 ml OutputOutput Total 40 ml 50 ml 60 ml BalanceBalance 760 ml 1250 ml 380 ml Exam Free Text/Dictation Constitutional: alert, oriented, well developed Psych: nl mood/affect; No anxiety Head: normocephalic, atraumatic Eyes: nl conjunctiva, nl lids, nl sclera ENMT: nl external ears & nose, nl lips & teeth, mucosa pink and moist Neck: supple, non-tender; No jvd Respiratory: normal air movement; No congested cough Cardiovascular: regular rate and rhythm, nl pulses Gastrointestinal: soft, distended (Moderate), tender (branden-incisional, incision sites dry without drainage/discoloration/bruising; RENETTA with serosanguineous drainage) Genitourinary - Female: nl external genitalia Musculoskeletal: nl extremities to inspection, nl gait and stance Extremities: normal pulses Neurological: nl mental status, nl speech, nl strength Skin: No rash or lesions Results Result Diagram: 01/12/19 0550 01/12/19 0550 NATHANAEL MCCORMICK MD Jan 12, 2019 23:08
[2019-01-13] MEDS: PIPER-TAZO 3.375 GM IV (PMX) 100 ML IVPB SCH ×3 (00:05→11:40)
[2019-01-13 02:00] VITALS: BP 132/55; PULSE 59; RESP 16
[2019-01-13] MEDS: ACCU-CHEK XX SCH (02:00)
[2019-01-13] MEDS: INSULIN ASPART [NOVOLOG] 3 ML PEN SC SCH ×2 (08:00→11:41)
[2019-01-13] MEDS: FAMOTIDINE 20 MG TAB PO SCH (08:12)
[2019-01-13] MEDS: FISH OIL 1,000 MG CAP PO SCH (08:13)
[2019-01-13] MEDS: HYDROCODONE/APAP (5/325) TAB PO PRN (08:13)
[2019-01-13] MEDS: DOCUSATE SODIUM 100 MG CAP PO SCH (08:13)
[2019-01-13 08:17] VITALS: BP 134/70; PULSE 74; RESP 15
--- NOTE | 2019-01-13 12:15 | PN ---
Date/Time of Note Date/Time of Note DATE: 01/13/19 TIME: 12:08 Assessment/Plan Lines/Catheters IV Catheter Type (from Nrs): Saline Lock Salgado in Place (from Nrs): No Assessment/Plan Chief Complaint/Hosp Course 1. Acute appendicitis with perforation, peritonitis and pus; left ovarian 60 cm large cyst with eminent risk for torsion; status post laparoscopic appendectomy and washout, laparoscopic left ovarian cystectomy (primary surgeon Dr. Browne) 01/08/19 -DC okay from surgical standpoint with drain and home health for drain care. No additional antibiotics. Follow-up in office in 1 week. -IS -ambulate -ice pack to abdominal wall -advance diet as tolerated 2. Leukocytosis: resolved -As above -Trend 3. Abdominal pain: -As above -Pain management 4.Large cystic structure in left adnexa: sp laparoscopic left ovarian cystectomy (primary surgeon Dr. Browne) 01/08/19 -as above 5. Hepatomegaly with hepatic steatosis: -encourage weight loss 6. Diabetes: -Highly encouraged weight loss -Glucose management 7. Obesity BMI: 31 -diet and exercise optimization -encourage weight loss Thank you. Patient seen and examined in collaboration with Dr. Luiz Cortes. Subjective 24 Hr Interval Summary Feels well. Some left lower quadrant discomfort however improved. No fevers, chills, sob, congested cough, cp, palpitations, norwood, dizziness, nausea, vomiting, diarrhea, dysuria. Exam/Review of Systems Vital Signs Vitals Vital Signs Date Temp Pulse Resp B/P (MAP) Pulse Ox O2 O2 Flow FiO2 Time Delivery Rate 01/13/19 98.5 74 15 134/70 95 Room Air 08:17 (91) Intake and Output 01/12/19 01/12/19 01/13/19 1515:00 23:00 07:00 IntakeIntake Total 600 ml 700 ml 680 ml OutputOutput Total 40 ml BalanceBalance 600 ml 700 ml 640 ml Exam Free Text/Dictation Constitutional: alert, oriented, well developed Psych: nl mood/affect; No anxiety Head: normocephalic, atraumatic Eyes: nl conjunctiva, nl lids, nl sclera ENMT: nl external ears & nose, nl lips & teeth, mucosa pink and moist Neck: supple, non-tender; No jvd Respiratory: normal air movement; No congested cough Cardiovascular: regular rate and rhythm, nl pulses Gastrointestinal: soft, distended (Moderate), tender (branden-incisional, incision sites dry without drainage/discoloration/bruising; RENETTA with serosanguineous drainage) Genitourinary - Female: nl external genitalia Musculoskeletal: nl extremities to inspection, nl gait and stance Extremities: normal pulses Neurological: nl mental status, nl speech, nl strength Skin: No rash or lesions Results Result Diagram: 01/12/19 0550 01/12/19 0550 HAKAN VEGA NP Jan 13, 2019 12:15
[2019-01-13 14:08] VITALS: BP 109/63; PULSE 65
--- NOTE | 2019-01-13 14:30 | DS ---
Date/Time of Note Date/Time of Note DATE: 01/13/19 TIME: 14:29 Discharge Summary Admission/Discharge Info Admit Date/Time Jan 08, 2019 at 10:39 Discharge Date/Time Discharge Diagnosis A 43-year-old female who presented to the Emergency Room with concerns for a bdominal pain, nausea, vomiting for 1 day's duration managed as follows: 1. Acute perforated appendicitis. -patient underwent lap appendectomy yesterday with findings of Acute appendicitis with perforation, peritonitis with pus and also had laparoscopic cystectomy of ovariancyst noted ion #2 in the same procedure -continue abx -drain still with good output and patient still wuth a good deal of pain -continue clears for now and supportive care 2. A 6.5 cm incidental finding of a left adnexal cystic structure.- complex ovarian cyst on US 3. Fatty liver and obesity. 4. DM 2: recent diagnosis - was not on meds outpatient -A1c 7.2 -advised on weight loss -diabetic education for need for glucometer and new diagnosis -SSI only for now, recommend 1800 calorie diet when commenced on a diet. 5. Low HDL : -high fiber diet, fish oil? Patient Condition: Stable Consults General Surgery: Sebastian Dee MD . Hospital Course This is a 43-year-old female who had presented to emergency room with abdominal pain nausea vomiting was found to have sepsis with appendicitis. Incidentally on CAT scan she was also noted to have an ovarian cyst. She underwent laparosco pic appendectomy as well as cystectomy in the same procedure but had a fairly prolonged postoperative course because her appendix was perforated and she had peritonitis with pulse. At this time she is much improved even though not fully back to baseline, she also continues to have significant output from Gonzalez abdominal drain. The patient is also a diabetic but was not on medications prior to hospitalization, hemoglobin A1c came back at 7.4. On an inpatient setting, she is only required sliding scale insulin. At this time she is tolerating a carb controlled diet, she is ambulance, and her pain is well controlled with minimal pain medications. It is my opinion that the patient is stable enough for discharge for continued outpatient follow-up with general surgery for monitoring and eventual removal of her drain. The patient is in agreement with this. Patient has been cleared by the surgical team now and she will be discharged with a training for outpatient follow-up. . Home Meds Discontinued Scripts Ciprofloxacin Hcl* (Ciprofloxacin Hcl*) 500 Mg Tablet, 500 MG PO BID for 7 Days, TAB Prov:TILA LEON PA-C 09/15/18 Follow-up Plan Please call the surgeon's office for follow-up and drain removal Name, Degree : Luiz Cortes MD Specialty : General Surgery Office Address : [address] [facility] [address] [place] [address] Office Office Also followup with your primary doctor within the next 1-2 weeks, to notify them of what happened in the hospital and ensure continued resolution of symptoms. If you don't have one please let someone know, we can give you resources that may help you pick one. You may call Dr Miguelito Kurtz's office. he's accepting new patients Name, Degree: Miguelito Kurtz MD Specialty: Internal Medicine Comments: Office Address: [address] [place] [address] [address] [place] [address] Office Office You may also call your insurance company to assign one to you. Review your medication list with your nurse before leaving and if you need new prescriptions please let your nurse know. I may have made changes to your home medications or given you new prescriptions, please let your primary doctor know as well. Stay compliant with your medications and report any side effects to your PCP or pharmacist. Return to the ER if you have any concerns and cannot reach your doctors or call your insurance company, they usually have a nurse that can help you. Primary Care Provider Lucian Medrano MD Time spent on discharge: > 30 minutes Pending Labs Laboratory Tests Test 01/12/19 17:20 01/12/19 20:45 01/13/19 08:09 01/13/19 11:40 Bedside 105 137 120 106 Glucose mg/dL (70-220) mg/dL (70-220) mg/dL (70-220) mg/dL (70-220) LUIS A PABON Jan 13, 2019 14:30
== END 2019-01-13 16:05 | disposition home health service (06) | DRG 340 ==
LOC: E/R 08:01 → PP2 10:39
PROVIDERS: ADMIT Family Medicine; ATTEND Family Medicine
PROC: 0UB14ZZ Excision of Left Ovary, Percutaneous Endoscopic Approach (ICD-10-PCS; 2019-01-08)
PROC: 0DTJ4ZZ Resection of Appendix, Percutaneous Endoscopic Approach (ICD-10-PCS; principal; 2019-01-08 16:00)
DX: K35.32 Acute appendicitis with perforation, localized peritonitis, and gangrene, without abscess (principal); N83.202 Unspecified ovarian cyst, left side; E11.9 Type 2 diabetes mellitus without complications; K76.0 Fatty (change of) liver, not elsewhere classified; E66.9 Obesity, unspecified; E78.5 Hyperlipidemia, unspecified; Z68.31 Body mass index [BMI] 31.0-31.9, adult
CPT/HCPCS: 36415; 74176; 76830; 76856; 80048; 80053; 80061; 81001; 81025; 82962; 83036; 83690; 83735; 84100; 84443; 84703; 85025; 85610; 85730; 88304; 88305; 96361; 96374; 96375; J1170; J1815; J1885; J2175; J2250; J2270; J2405; J2543; J2710; J2765; J2795; J3010; J7030